=== PATIENT | male | born 1970 | race Caucasian/White ===

== ENCOUNTER 2020-02-28 08:23 | Emergency (ER) | payer BC ==
[2020-02-28] MEDS ORDERED: Sodium Chloride 0.9% 10 ML Syringe FLUSH PRN (08:53)
[2020-02-28] MEDS ORDERED: Ondansetron 4 MG Tab.DIS PO ONE (08:53)
--- NOTE | 2020-02-28 09:48 | CR ---
Chest: Portable view of the chest was obtained. Comparison: No prior chest imaging is available. Heart size and mediastinum are normal. Lungs are clear with no acute parenchymal change. Bony structures are unremarkable. Impression: 1. Nothing acute is seen on portable chest x-ray. Diagnostic code #1 Study was dictated in MDT
--- NOTE | 2020-02-28 10:29 | EDM.PDOC ---
ED HPI GENERAL MEDICAL PROBLEM - General Chief Complaint: Chest Pain Stated Complaint: CHEST TIGHTNESS/NAUSEA Time Seen by Provider: 02/28/20 08:43 Source of Information: Reports: Patient, RN Notes Reviewed - History of Present Illness INITIAL COMMENTS - FREE TEXT/NARRATIVE: 49 yr old male with onset of discomfort upper abd last evening after eating. He did get nauseated and did vomit once. Since that time has just not felt completely normal. States there has been a "warm sensation L chest" No chest pressure, pain or tightness. No further vomiting. No diarrhea. No cough, dyspnea, fever or chills. Chest Pain Score (Numeric/FACES): 2 - Related Data Allergies Allergy/AdvReac Type Severity Reaction Status Date / Time No Known Allergies Allergy Verified 02/28/20 08:34 Home Meds: Home Meds . [No Known Home Meds] 02/28/20 [History] Past Medical History - Past Health History Medical/Surgical History: Denies Medical/Surgical History Social & Family History - Tobacco Use Smoking Status *Q: Former Smoker Used Tobacco, but Quit: Yes Month/Year Tobacco Last Used: 15 years ago ED ROS GENERAL - Review of Systems Review Of Systems: See Below Constitutional: Denies: Fever, Chills, Diaphoresis HEENT: Reports: No Symptoms Respiratory: Denies: Shortness of Breath, Pleuritic Chest Pain, Cough Cardiovascular: Denies: Chest Pain GI/Abdominal: Reports: Abdominal Pain (gone), Nausea (gone), Vomiting (gone). Denies: Hematochezia, Melena Musculoskeletal: Denies: Neck Pain, Shoulder Pain, Arm Pain, Back Pain Skin: Reports: No Symptoms Neurological: Reports: No Symptoms ED EXAM, GENERAL - Physical Exam Exam: See Below General Appearance: Alert, No Apparent Distress Head: Atraumatic. No: Facial Swelling Neck: Supple Respiratory/Chest: No Respiratory Distress, Lungs Clear, Normal Breath Sounds. No: Rhonchi, Wheezing Cardiovascular: Regular Rate, Rhythm GI/Abdominal: Soft, Non-Tender Extremities: Normal Inspection, Normal Range of Motion. No: Pedal Edema, Leg Pain, Redness Neurological: Alert, Normal Reflexes, No Motor/Sensory Deficits Skin Exam: Warm, Dry, Normal Color EKG INTERPRETATION EKG Date: 02/28/20 Rhythm: NSR Mccracken: Normal P-Wave: Present QRS: Normal ST-T: Normal Course - Vital Signs Last Recorded V/S: Last Vital Signs Temp 97.9 F 02/28/20 08:31 Pulse 76 02/28/20 10:30 Resp 16 02/28/20 10:30 BP 146/101 H 02/28/20 10:30 Pulse Ox 98 02/28/20 10:30 - Orders/Labs/Meds Orders: Active Orders 24 hr Category Date Time Status EKG 12 Lead [EKG Documentation Completion] [RC] STAT Care 02/28/20 08:53 Active Peripheral IV Care [RC] . DIRECTED Care 02/28/20 08:53 Active Peripheral IV Insertion Adult [OM.PC] Stat Oth 02/28/20 08:53 Ordered Labs: Laboratory Tests 02/28/20 02/28/20 Range/Units 08:40 08:40 WBC 5.71 (4.23-9.07) K/mm3 RBC 5.51 (4.63-6.08) M/mm3 Hgb 16.2 (13.7-17.5) gm/dl Hct 47.7 (40.1-51.0) % MCV 86.6 (79.0-92.2) fl MCH 29.4 (25.7-32.2) pg MCHC 34.0 (32.2-35.5) g/dl RDW Std Deviation 42.0 (35.1-43.9) fL Plt Count 267 (163-337) K/mm3 MPV 9.8 (9.4-12.3) fl Neut % (Auto) 51.1 (34.0-67.9) % Lymph % (Auto) 32.6 (21.8-53.1) % Bucks % (Auto) 10.0 (5.3-12.2) % Eos % (Auto) 5.4 (0.8-7.0) Baso % (Auto) 0.5 (0.1-1.2) % Neut # (Auto) 2.92 (1.78-5.38) K/mm3 Lymph # (Auto) 1.86 (1.32-3.57) K/mm3 Bucks # (Auto) 0.57 (0.30-0.82) K/mm3 Eos # (Auto) 0.31 (0.04-0.54) K/mm3 Baso # (Auto) 0.03 (0.01-0.08) K/mm3 Sodium 139 (136-145) mEq/L Potassium 4.2 (3.5-5.1) mEq/L Chloride 101 (98-107) mEq/L Carbon Dioxide 28 (21-32) mEq/L Anion Gap 14.2 (5-15) BUN 14 (7-18) mg/dL Creatinine 1.1 (0.7-1.3) mg/dL Est Cr Clr Drug Dosing 88.18 mL/min Estimated GFR (MDRD) > 60 (>60) mL/min BUN/Creatinine Ratio 12.7 L (14-18) Glucose 108 H (74-106) mg/dL Calcium 9.4 (8.5-10.1) mg/dL Total Bilirubin 0.9 (0.2-1.0) mg/dL AST 32 (15-37) U/L ALT 61 (16-63) U/L Alkaline Phosphatase 84 (46-116) U/L Troponin I < 0.017 (0.00-0.056) ng/mL Total Protein 7.7 (6.4-8.2) g/dl Albumin 4.1 (3.4-5.0) g/dl Globulin 3.6 gm/dL Albumin/Globulin Ratio 1.1 (1-2) Lipase 63 L (73-393) U/L Meds: Medications Discontinued Medications Generic Name Dose Route Start Last Admin Trade Name Freq PRN Reason Stop Dose Admin Ondansetron HCl 4 mg 02/28/20 08:53 02/28/20 08:57 Zofran Odt PO 02/28/20 08:54 4 mg ONETIME ONE Administration Sodium Chloride 10 ml 02/28/20 08:53 02/28/20 08:57 Saline Flush FLUSH 10 ml ASDIRECTED PRN Administration Keep Vein Open - Re-Assessments/Exams Free Text/Narrative Re-Assessment/Exam: 02/28/20 11:41 CXR nl, trop., other labs normal. Departure - Departure Time of Disposition: 10:28 Disposition: Home, Self-Care 01 Clinical Impression: Atypical chest pain, Abdominal pain Instructions: Nonspecific Chest Pain, Adult, [id number] Referrals: PCP,None [Primary Care Provider] - Forms: ED Department Discharge Additional Instructions: Rest, no heavy lifting for now, clear liquids and bland diet as tolerated today and tomorrow. Try see Dr Rodriguez or Dr Persaud at our medical clinic later this week or early next week. Return to ED if symptoms worsening in any way. Sepsis Event Note - Evaluation Sepsis Screening Result: No Definite Risk - Focused Exam Vital Signs: Vital Signs Temp Pulse Resp BP Pulse Ox 02/28/20 10:30 76 16 146/101 H 98 02/28/20 08:31 97.9 F 77 16 159/106 H 100 Date Exam was Performed: 02/28/20 Time Exam was Performed: 11:36 - My Orders Last 24 Hours: My Active Orders 02/28/20 08:53 EKG 12 Lead [EKG Documentation Completion] [RC] STAT Peripheral IV Care [RC] . DIRECTED Peripheral IV Insertion Adult [OM.PC] Stat - Assessment/Plan Last 24 Hours: My Active Orders 02/28/20 08:53 EKG 12 Lead [EKG Documentation Completion] [RC] STAT Peripheral IV Care [RC] . DIRECTED Peripheral IV Insertion Adult [OM.PC] Stat
== END 2020-02-28 10:40 | disposition home or self-care (01) ==
LOC: JD.ED 08:23
DX: R10.10 Upper abdominal pain, unspecified (principal); R07.89 Other chest pain; Z87.891 Personal history of nicotine dependence
CPT/HCPCS: 36415; 71045; 80053; 83690; 84484; 85025; 93005; 99284; A9270; 93010; 99283

== ENCOUNTER 2024-02-09 17:19 | Emergency (ER) | payer BC ==
[2024-02-09] MEDS: Diphtheria,Pertussis(Acell),Tetanus Vaccine 0.5 ML Syringe IM ONE (18:43)
[2024-02-09] MEDS: ceFAZolin 2 GM in Sodium Chloride 0.9% 50 ML IV ONE (19:21)
[2024-02-09] MEDS: Bupivacaine 0.5% 10 ML SDV INJECT ONE (19:21)
[2024-02-09] MEDS: Lidocaine 1% 10 ML MDV INJECT ONE (19:21)
== END 2024-02-09 20:00 | disposition home or self-care (01) ==
LOC: JD.ED 17:19
DX: S62.633B Displaced fracture of distal phalanx of left middle finger, initial encounter for open fracture (principal); W31.89XA Contact with other specified machinery, initial encounter
CPT/HCPCS: 12001; 73140; 90471; 90715; 96365; 99283; J0665; J0690; J3490